=== PATIENT | female | born 1955 | race Caucasian/White ===

== ENCOUNTER 2018-12-09 12:26 | Emergency (ER) | payer BC, OTHER ==
--- NOTE | 2018-12-09 14:10 | ED ---
Neurological HPI - HPI Summary HPI Summary: Pt is a 63 y/o female who presents to the ED c/o paresthesia. She was typing at work at 11:30 when she suddenly had paresthesia of her left hand. The sensation was described as if her hand fell asleep. It then traveled up through her left arm to her left neck, then back down into her left leg. The episode lasted a total of 5 minutes. She denies any slurred speech, blurred vision, diplopia, urinary sx, DELGADO, numbness, or weakness. She notes that 3 weeks ago her lip suddenly became numb and tingly for a brief period as well. Pt is unsure if she has had recent exposure to lead or CO. She also notes a cough for the past few weeks that is now resolving. Pts father has a hx of stroke. - History of Current Complaint Chief Complaint: EDGeneral Stated Complaint: ARM NUMBNESS, AND JAW NUMBNESS Time Seen by Provider: 12/09/18 14:05 Hx Obtained From: Patient Onset/Duration: Sudden Onset, Started hours ago, Resolved Timing: Intermittent Episodes Lasting: - 5 minutes Current Severity: None Neurological Deficit Location: LUE, LLE Pain Intensity: 0 Pain Scale Used: 0-10 Numeric Character: Paresthesia Aggravating: Nothing Alleviating: Spontanious Resolution Associated Signs and Symptoms: Negative: Visual Changes, Headache, Weakness, Impaired Speech, Numbness - Allergy/Home Medications Allergies/Adverse Reactions: Allergies Allergy/AdvReac Type Severity Reaction Status Date / Time No Known Allergies Allergy Verified 12/09/18 12:34 PMH/Surg Hx/FS Hx/Imm Hx Endocrine/Hematology History: Denies: Hx Diabetes, Hx Anemia Cardiovascular History: Denies: Hx Hypertension GI History: Denies: Hx Jaundice - Cancer History Cancer Type, Location and Year: skin Hx Chemotherapy: No Hx Radiation Therapy: No - Surgical History Surgery Procedure, Year, and Place: CSECTION. 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 HYSTERECTOMY Hx Anesthesia Reactions: No Infectious Disease History: No Infectious Disease History: Denies: Traveled Outside the [place] in Last 30 Days - Family History Known Family History: Positive: Cardiac Disease - father - valve replacement, Other - father - CVA - Social History Alcohol Use: Occasionally Hx Substance Use: No Substance Use Type: Reports: None Hx Tobacco Use: No Smoking Status (MU): Never Smoked Tobacco Review of Systems Negative: Blurred Vision, Diplopia Positive: Cough - now resolving Genitourinary: Negative Positive: Paresthesia - left side. Negative: Headache, Weakness, Numbness, Slurred Speech All Other Systems Reviewed And Are Negative: Yes Physical Exam - Summary Physical Exam Summary: Appearance: Well appearing, no pain distress Skin: warm, dry, reflects adequate perfusion, scars on nose and face Head/face: normal Eyes: EOMI, RADHA ENT: mucous membranes moist Neck: supple, non-tender Respiratory: CTA, breath sounds present Cardiovascular: RRR, pulses symmetrical, no murmurs Abdomen: non-tender, soft Bowel Sounds: present Musculoskeletal: normal, strength/ROM intact Neuro: normal, sensory motor intact, A&Ox3 GCS: 15 Triage Information Reviewed: Yes Vital Signs On Initial Exam: Initial Vitals Temp Pulse Resp BP Pulse Ox 99.2 F 92 16 155/92 96 12/09/18 12:31 12/09/18 12:31 12/09/18 12:31 12/09/18 12:31 12/09/18 12:31 Vital Signs Reviewed: Yes Diagnostics - Vital Signs Vital Signs Temp Pulse Resp BP Pulse Ox 12/09/18 12:31 99.2 F 92 16 155/92 96 - Laboratory Result Diagrams: 12/09/18 14:24 12/09/18 14:24 Lab Statement: Any lab studies that have been ordered have been reviewed, and results considered in the medical decision making process. - CT Brain CT CT Interpretation Completed By: Radiologist Summary of CT Findings: NO ACUTE INTRACRANIAL PATHOLOGY. ED physician reviewed radiology report. - EKG 12:48 Cardiac Rate: NL - 81 bpm EKG Rhythm: Sinus Rhythm ST Segment: Normal Summary of EKG Findings: LAD, Q waves inferiorly NIH Scale - NIH Scale Level of Consciousness: Alert/Keenly Responsive Ask Patient the Month and His/Her Age: Both Correct Ask Pt to Open/Close Eyes and Butcherette/Release Non-Paretic Hand: Both Correctly Best Gaze (Only Horizontal Eye Movement): Normal Visual Field Testing: No Visual Loss Facial Paresis-Pt to Smile & Close Eyes or Grimace Symmetry: Normal/Symmetrical Motor Function - Right Arm: No Drift-Holds 10 Seconds Motor Function - Left Arm: No Drift-Holds 10 Seconds Motor Function - Right Leg: No Drift-Holds 10 Seconds Motor Function - Left Leg: No Drift-Holds 10 Seconds Limb Ataxia-Must be out of Proportion to Weakness Present: Absent Sensory (Use Pinprick to Test Arms/Legs/Trunk/Face): Normal Best Language (Describe Picture, Name Items): No Aphasia Dysarthria (Read Several Words): Normal Extinction and Inattention: No Abnormality Total Score: 0 Course/Dx - Course Course Of Treatment: Nurse's notes reviewed. Patient with current NIH stroke score of 0 who presents with numbness that moved about her left side. Laboratories, CT scan and EKG are all normal. No significant stroke risk factors. Unlikely to be ischemic stroke given the odd distribution of symptoms at various times. No carbon monoxide. Suggested is outpatient baby aspirin and primary care reevaluation and possible carotid ultrasound, echocardiogram. - Differential Dx Differential Diagnoses Neuro: Positive: Other - Paresthesia, metabolic abnormality, ischemic stroke, carbon monoxide exposure, arrhythmia - Diagnoses Provider Diagnoses: Paresthesia Discharge - Sign-Out/Discharge Documenting (check all that apply): Patient Departure - Discharge Patient Received Moderate/Deep Sedation with Procedure: No - Discharge Plan Condition: Improved Disposition: HOME Patient Education Materials: Paresthesia (ED) Referrals: Froylan Winslow MD [Primary Care Provider] - Additional Instructions: Take a baby aspirin daily. Call your doctor first thing in the morning to schedule prompt follow-up. Return with any difficulty with movement, weakness, difficulty with speech or vision, worse, new symptoms or other concerns. - Billing Disposition and Condition Condition: IMPROVED Disposition: Home - Attestation Statements Document Initiated by Linsey: Yes Documenting Scribe: Tonia Ugalde Provider For Whom Linsey is Documenting (Include Credential): Bertram Melendez MD Scribe Attestation: Tonia Patterson, scribed for Bertram Melendez MD on 12/09/18 at 1740. Scribe Documentation Reviewed: Yes Provider Attestation: The documentation as recorded by the Tonia cleary accurately reflects the service I personally performed and the decisions made by , Bertram Melendez MD Status of Scribe Document: Viewed
[2018-12-09 14:34] LABS: Hematocrit 44 % (35-47); Hemoglobin 15.1 g/dl (12.0-16.0); Mean Corpuscular HGB Conc 34 g/dl (31-36); Mean Corpuscular Hemoglobin 28 pg (27-31); Mean Corpuscular Volume 83 fL (80-97); Mean Platelet Volume 8.3 fL (7.4-10.4); Platelet Count 207 10^3/ul (150-450); Red Blood Count 5.34 10^6/ul (4.00-5.40); Red Cell Distribution Width 14 % (10.5-15); White Blood Count 5.8 10^3/ul (3.5-10.8)
[2018-12-09 14:52] LABS: Albumin 4.2 g/dL (3.2-5.2); Albumin/Globulin Ratio 1.4 (1-3); BUN/Creatinine Ratio 21.5 (8-20); Calcium 9.8 mg/dL (8.6-10.3); EGFR African American 89.5 (>60); Globulin 2.9 g/dL (2-4); Potassium 3.8 mmol/L (3.5-5.0); Total Bilirubin 0.5 mg/dL (0.2-1.0); Total Protein 7.1 g/dL (6.4-8.9)
[2018-12-09 15:42] VITALS: BP 150/97
[2018-12-09 16:16] LABS: Folate 12.87 ng/mL (>3.99)
== END 2018-12-09 15:41 | disposition home or self-care (01) ==
LOC: ED 12:26
DX: R20.2 Paresthesia of skin (principal); R05 Cough; R20.0 Anesthesia of skin
CPT/HCPCS: 36415; 70450; 80053; 82607; 82746; 84484; 85027; 93005; 99282